=== PATIENT | male | born 1990 | race Caucasian/White ===

== ENCOUNTER 2016-12-19 09:08 | Day surgery (SDC) | payer OTHER ==
--- NOTE | 2016-11-30 13:28 | P.GSHP ---
History of Present Illness H&P Date: 11/30/16 Chief Complaint: Right thigh lipoma Patient seen in the office. He has complaints of a bulge in the right thigh. This is been gradually enlarging. He is interested in removal. He has mild pain at that location. No trauma. Surgical - Exam Physical exam: General: Well-developed, well-nourished HEENT: Normocephalic, sclerae nonicteric Abdomen: Nontender, nondistended Extremities: 4 x 6 cm mass anterior right mid thigh soft fleshy suspect lipoma Neuro: Alert and oriented Assessment and Plan (1) Lipoma of right thigh Narrative/Plan: We'll proceed with surgical excision on 12/19. Risks of bleeding, infection, nerve injury, and recurrence were discussed. He understands and wishes to proceed. Status: Acute
[2016-12-17 14:13] VITALS: BMI 31.4
[~2016-12-19 09:08] MED LIST: HEPARIN SODIUM,PORCINE 5,000 UNIT/ML 1 ML VIAL SQ ONE; HYDROmorphone 1 MG/ML 1 ML SYRINGE IVP PRN; LACTATED RINGERS 1,000 ML IV SCH; LIDOCAINE 1% 20 ML VIAL (10MG/ML) FOR IV START INTRADERMA PRN; Pre Op ABX Message 1 EACH MISC MISCELLANE ONE
--- NOTE | 2016-12-19 09:20 | P.HPADDEND ---
H&P Addendum H&P Addendum Date: 12/19/16 Patient also has complaints of a mass in the left hip region. He says this actually is hurting more in the right thigh lesion. Like this excised as well. On exam this appears represent another lipomatous lesion. This measures about 4 cm in size. Additional risks of infection and recurrence numbness were discussed. He understands and wishes to proceed.
[2016-12-19 09:27] VITALS: TEMP 96.8
[2016-12-19] MEDS ORDERED: ONDANSETRON 4 MG/2 ML VIAL IVP ONE (09:28)
[2016-12-19] MEDS ORDERED: DEXAMETHASONE SOD PHOSPHATE 10 MG/ML 1 ML VIAL IV ONE (09:33)
[2016-12-19] MEDS ORDERED: KETAMINE 10 MG/ML 20 ML VIAL ONE (09:39)
[2016-12-19] MEDS ORDERED: MIDAZOLAM 2 MG/2 ML VIAL ONE (09:39)
[2016-12-19] MEDS ORDERED: fentaNYL (PF) 50 MCG/ML 2 ML AMP ONE (09:39)
[2016-12-19] MEDS ORDERED: PROPOFOL 10 MG/ML 20 ML VIAL IV ONE (09:39)
[2016-12-19] MEDS ORDERED: BUPIVACAINE (PF) 0.25% 30 ML VIAL SQ ONE ×2 (09:59)
[2016-12-19 10:45] VITALS: RESP 16
[2016-12-19] MEDS ORDERED: HYDROcodone/APAP 5-325MG 1 EACH TAB PO PRN (10:47)
[2016-12-19] MEDS ORDERED: NALOXONE 0.4 MG/ML 1 ML VIAL IV PRN (10:47)
--- NOTE | 2016-12-19 10:50 | P.PCN ---
Date of Procedure: 12/19/16 Preoperative Diagnosis: Postoperative Diagnosis: Procedure(s) Performed: PREOPERATIVE DIAGNOSIS: Right thigh and left hip lipoma POSTOPERATIVE DIAGNOSIS: Same PROCEDURE: Excision right thigh and left hip lipoma SURGEON: Marie HENAOL: Minimal ANESTHESIA: Pipo COMPLICATIONS: None OPERATIVE PROCEDURE: Patient was placed in the supine position. The patient's right thigh was prepped and draped in usual sterile fashion. The skin was infiltrated with Marcaine solution. A horizontal incision was made overlying the palpable mass in the mid anterior right thigh. The lipomatous lesion was identified. This was able to be excised with primarily blunt dissection. This measured approximately 4.5 x 3.5 cm. This was sent to pathology. The saphenous tissues were closed using 3-0 Vicryl sutures and the skin using a running 4-0 Monocryl stitch. Next the patient was placed in the right decubitus position. The lesion in the left hip was addressed. A similar incision was created. The mass here measured approximately 4 x 3.5 cm. This was also sent to pathology. This was closed in a similar fashion. Steri- Strips and sterile dressings were applied to both locations. DISPOSITION: Stable to recovery room Implants: Indications for Procedure: Operative Findings: Description of Procedure:
[2016-12-19 11:07] VITALS: BP 116/65; PULSE 72
== END 2016-12-19 11:15 | disposition home or self-care (01) ==
LOC: OR 09:08
PROVIDERS: ATTEND Surgery
DX: D17.23 Benign lipomatous neoplasm of skin and subcutaneous tissue of right leg (principal); D17.1 Benign lipomatous neoplasm of skin and subcutaneous tissue of trunk; F90.9 Attention-deficit hyperactivity disorder, unspecified type; Z79.899 Other long term (current) drug therapy
CPT/HCPCS: 88304; 27337; 27043; J2250; J1644; J1100; J2405; J3010; J2704

== ENCOUNTER 2017-05-24 14:04 | Emergency (ER) | payer OTHER ==
[2017-05-24] MEDS ORDERED: RX INFO: IV CONTRAST WAS GIVEN 1 EACH MISC MISCELLANE PRN (14:44)
--- NOTE | 2017-05-24 14:49 | ED ---
General Adult HPI - General Chief complaint: Back Pain/Injury Stated complaint: Back pain Time Seen by Provider: 05/24/17 14:31 Source: patient, family, RN notes reviewed Mode of arrival: wheelchair Limitations: no limitations - History of Present Illness Initial comments: Patient is a pleasant 26-year-old male presenting to the emergency department with discomfort of his upper back. Patient states this radiates towards the neck and sides and lower back. Patient states this started 2 days ago when he was going to bed. Symptoms have progressively worsened since that time. No history of similar symptoms previously. Patient states it is becoming irritating. Patient states he has been forgetful. Patient needed to leave work because this is becoming aggravating. No weakness. Patient does have tingling to both of his arms. Patient has noticed a lump in his upper back. - Related Data Home Medications Medication Instructions Recorded Confirmed Dextroamphetamine/Amphetamine 20 mg PO DAILY 12/17/16 05/24/17 [Adderall] Previous Rx's Medication Instructions Recorded Acetaminophen-Codeine 300-30mg 1 each PO Q4H PRN #12 tablet 05/24/17 [Tylenol #3] Cephalexin [Keflex] 500 mg PO QID #40 cap 05/24/17 Allergies Allergy/AdvReac Type Severity Reaction Status Date / Time No Known Allergies Allergy Verified 05/24/17 14:40 Review of Systems ROS Statement: Those systems with pertinent positive or pertinent negative responses have been documented in the HPI. ROS Other: All systems not noted in ROS Statement are negative. Constitutional: Denies: fever Eyes: Denies: eye pain ENT: Denies: ear pain Respiratory: Denies: cough Cardiovascular: Denies: chest pain Endocrine: Denies: fatigue Gastrointestinal: Denies: abdominal pain Genitourinary: Denies: dysuria Musculoskeletal: Denies: back pain Skin: Denies: rash Neurological: Reports: headache (Minimal), paresthesias. Denies: weakness Past Medical History Past Medical History: No Reported History History of Any Multi-Drug Resistant Organisms: None Reported Past Surgical History: No Surgical Hx Reported Additional Past Surgical History / Comment(s): dental work, right leg Additional Past Anesthesia/Blood Transfusion Reaction / Comment(s): no surgery Past Psychological History: ADD/ADHD Smoking Status: Never smoker Past Alcohol Use History: None Reported Past Drug Use History: None Reported - Past Family History Mother Family Medical History: No Reported History General Exam Limitations: no limitations General appearance: alert, in no apparent distress Head exam: Present: atraumatic Eye exam: Present: normal appearance, PERRL, EOMI. Absent: nystagmus ENT exam: Present: normal oropharynx Neck exam: Present: normal inspection, full ROM. Absent: tenderness, meningismus Respiratory exam: Present: normal lung sounds bilaterally Cardiovascular Exam: Present: regular rate, normal rhythm GI/Abdominal exam: Present: soft. Absent: tenderness Extremities exam: Present: normal inspection, full ROM. Absent: pedal edema, calf tenderness Back exam: Present: other (In the region from T1 to T3 slightly left of midline and there is approximately 2-3 cm region of mild to moderate swelling. Nontender. Questionable central puncture) Neurological exam: Present: alert, oriented X3, CN II-XII intact. Absent: motor sensory deficit Expanded Patient oriented to: Present: person, place, time Speech: Present: fluid speech Cranial nerves: EOM's Intact: Normal, Facial Sensation: Normal Sensory exam: Upper Extremity Light Touch: Normal, Lower Extremity Light Touch: Normal Motor strength exam: RUE: 5, LUE: 5, RLE: 5, LLE: 5 Eye Response: (4) open spontaneously Motor Response: (6) obeys commands Verbal Response: (5) oriented Psychiatric exam: Present: normal affect, normal mood Skin exam: Present: other (Question puncture in the area of swelling of the upper thoracic region. There is also some mild skin breakdown of the upper neck. It is nontender.) Course Vital Signs 05/24/17 05/24/17 14:15 15:56 Temperature 98.7 F Pulse Rate 76 72 Respiratory 16 18 Rate Blood Pressure 140/74 129/72 O2 Sat by Pulse 98 100 Oximetry EKG Findings - EKG Comments: EKG Findings:: No sinus rhythm 67. NJ 126. QRS 86. QT 360. QTC 380. Normal axis. Normal QRS. No acute ST change. Medical Decision Making - Medical Decision Making Patient reevaluated and resting comfortably in bed. Patient and family updated on results and need for follow-up. Patient is advised to see his doctor Saturday. Patient denies return for increased swelling or sitting symptoms or fevers. Patient will be covered with antibiotics for possible early infection. - Lab Data Result diagrams: 05/24/17 14:55 01/05/18 14:55 Lab Results 05/24/17 05/24/17 05/24/17 Range/Units 14:55 14:55 14:55 WBC 6.1 (3.8-10.6) k/uL RBC 4.72 (4.30-5.90) m/uL Hgb 14.6 (13.0-17.5) gm/dL Hct 43.1 (39.0-53.0) % MCV 91.2 (80.0-100.0) fL MCH 30.8 (25.0-35.0) pg MCHC 33.8 (31.0-37.0) g/dL RDW 12.3 (11.5-15.5) % Plt Count 182 (150-450) k/uL Neutrophils % 68 % Lymphocytes % 23 % Monocytes % 4 % Eosinophils % 3 % Basophils % 1 % Neutrophils # 4.2 (1.3-7.7) k/uL Lymphocytes # 1.4 (1.0-4.8) k/uL Monocytes # 0.2 (0-1.0) k/uL Eosinophils # 0.2 (0-0.7) k/uL Basophils # 0.0 (0-0.2) k/uL PT (9.0-12.0) sec INR (<1.2) APTT (22.0-30.0) sec Sodium 141 (137-145) mmol/L Potassium 4.4 (3.5-5.1) mmol/L Chloride 102 (98-107) mmol/L Carbon Dioxide 30 (22-30) mmol/L Anion Gap 9 mmol/L BUN 19 (9-20) mg/dL Creatinine 1.15 (0.66-1.25) mg/dL Est GFR (MDRD) Af Amer >60 (>60 ml/min/1.73 sqM) Est GFR (MDRD) Non-Af >60 (>60 ml/min/1.73 sqM) Glucose 106 H (74-99) mg/dL Plasma Lactic Acid Will 1.4 (0.7-2.0) mmol/L Calcium 9.5 (8.4-10.2) mg/dL Magnesium 2.0 (1.6-2.3) mg/dL Total Bilirubin 0.2 (0.2-1.3) mg/dL AST 27 (17-59) U/L ALT 32 (21-72) U/L Alkaline Phosphatase 62 (38-126) U/L Total Protein 7.1 (6.3-8.2) g/dL Albumin 4.4 (3.5-5.0) g/dL 05/24/17 Range/Units 14:55 WBC (3.8-10.6) k/uL RBC (4.30-5.90) m/uL Hgb (13.0-17.5) gm/dL Hct (39.0-53.0) % MCV (80.0-100.0) fL MCH (25.0-35.0) pg MCHC (31.0-37.0) g/dL RDW (11.5-15.5) % Plt Count (150-450) k/uL Neutrophils % % Lymphocytes % % Monocytes % % Eosinophils % % Basophils % % Neutrophils # (1.3-7.7) k/uL Lymphocytes # (1.0-4.8) k/uL Monocytes # (0-1.0) k/uL Eosinophils # (0-0.7) k/uL Basophils # (0-0.2) k/uL PT 9.9 (9.0-12.0) sec INR 1.0 (<1.2) APTT 24.8 (22.0-30.0) sec Sodium (137-145) mmol/L Potassium (3.5-5.1) mmol/L Chloride (98-107) mmol/L Carbon Dioxide (22-30) mmol/L Anion Gap mmol/L BUN (9-20) mg/dL Creatinine (0.66-1.25) mg/dL Est GFR (MDRD) Af Amer (>60 ml/min/1.73 sqM) Est GFR (MDRD) Non-Af (>60 ml/min/1.73 sqM) Glucose (74-99) mg/dL Plasma Lactic Acid Will (0.7-2.0) mmol/L Calcium (8.4-10.2) mg/dL Magnesium (1.6-2.3) mg/dL Total Bilirubin (0.2-1.3) mg/dL AST (17-59) U/L ALT (21-72) U/L Alkaline Phosphatase (38-126) U/L Total Protein (6.3-8.2) g/dL Albumin (3.5-5.0) g/dL - Radiology Data Radiology results: image reviewed (Computed tomography scan of the neck show some nonspecific lymph nodes.) Disposition Clinical Impression: Thoracic back pain, Skin lesion of back Disposition: HOME SELF-CARE Condition: Stable Instructions: Back Pain (ED) Additional Instructions: Please follow-up with Dr. Brower Saturday. Return for fevers, increased swelling, weakness, confusion, worsening symptoms or other concerns. Prescriptions: Acetaminophen-Codeine 300-30mg [Tylenol #3] 1 each PO Q4H PRN #12 tablet PRN Reason: Pain Cephalexin [Keflex] 500 mg PO QID #40 cap Referrals: Kael Brower MD [Primary Care Provider] - 1-2 days Time of Disposition: 16:29
[2017-05-24 15:07] LABS: Basophils % (A) 1 %; Eosinophils # (A) 0.2 k/uL (0-0.7); Eosinophils % (A) 3 %; HCT 43.1 % (39.0-53.0); HGB 14.6 gm/dL (13.0-17.5); Lymphocytes # (A) 1.4 k/uL (1.0-4.8); Lymphocytes % (A) 23 %; MCH 30.8 pg (25.0-35.0); MCHC 33.8 g/dL (31.0-37.0); MCV 91.2 fL (80.0-100.0); Mean Platelet Volume 6.9; Monocytes # (A) 0.2 k/uL (0-1.0); Monocytes % (A) 4 %; Neutrophils # (A) 4.2 k/uL (1.3-7.7); Neutrophils % (A) 68 %; Platelet Count 182 k/uL (150-450); RBC 4.72 m/uL (4.30-5.90); RDW 12.3 % (11.5-15.5); WBC 6.1 k/uL (3.8-10.6)
[2017-05-24 15:14] LABS: Partial Thromboplastin Time 24.8 sec (22.0-30.0); Prothrombin Time 9.9 sec (9.0-12.0)
[2017-05-24 15:16] LABS: ALT 32 U/L (21-72); AST 27 U/L (17-59); Albumin 4.4 g/dL (3.5-5.0); Alkaline Phosphatase 62 U/L (38-126); Anion Gap 9 mmol/L; Blood Urea Nitrogen 19 mg/dL (9-20); Calcium 9.5 mg/dL (8.4-10.2); Carbon Dioxide 30 mmol/L (22-30); Chloride 102 mmol/L (98-107); Glucose 106 mg/dL (74-99); Potassium 4.4 mmol/L (3.5-5.1); Sodium 141 mmol/L (137-145); Total Bilirubin 0.2 mg/dL (0.2-1.3); Total Protein 7.1 g/dL (6.3-8.2)
--- NOTE | 2017-05-24 15:37 | CT ---
EXAMINATION TYPE: CT cervical spine w con DATE OF EXAM: 05/24/2017 COMPARISON: NONE HISTORY: Neck swelling, dizziness, and confusion CT DLP: 742.9 mGycm. Automated Exposure Control for Dose Reduction was Utilized. TECHNIQUE: CT scan of the cervical spine is obtained with IV contrast, axial images are obtained, sa gittal and coronal reformatted images are also reviewed. Patient is injected with 100 cc Omnipaque 30 0 for the study. FINDINGS: Cervical spine is visualized in its entirety from C1 through upper thoracic levels, demonst rates satisfactory alignment without evidence of acute fracture or dislocation. Prevertebral soft ti ssue appears within normal limits. The C1-C2 articulation is within normal limits on the coronal josselin ges. Vertebral body heights and disc space heights are maintained. There is prominent anterior spurring C5 -C6 level. No large posterior disc herniations are present. Review of axial images shows no significa nt spinal canal stenosis or neural foraminal narrowing at any cervical level. Thyroid gland is felt w ithin normal limits. Visualized lung apices are clear. No suspicious enhancement is noted. Minimal mu cosal thickening inferior posterior left maxillary sinus is present. There are scattered prominent bi lateral neck lymph nodes, largest right neck and parapharyngeal space measures 12 x 9 mm axial image 49. No definitive greater than 1 cm neck adenopathy is seen. IMPRESSION: There is no acute fracture or dislocation evident in the cervical spine. No significant finding is seen to account for patient's symptoms.
--- NOTE | 2017-05-24 15:39 | XR ---
EXAMINATION TYPE: XR chest 2V DATE OF EXAM: 05/24/2017 COMPARISON: NONE HISTORY: Weakness and neck pain. TECHNIQUE: Frontal and lateral views of the chest are obtained. FINDINGS: There is no focal air space opacity, pleural effusion, or pneumothorax seen. The cardiac silhouette size is within normal limits. The osseous structures are intact. IMPRESSION: No acute cardiopulmonary process.
[2017-05-24] MEDS ORDERED: MORPHINE SULFATE 5 MG/ML SYRINGE IVP PRN (15:45)
[2017-05-24 16:35] VITALS: BP 113/58; PULSE 61; RESP 16; TEMP 97.8
== END 2017-05-24 16:42 | disposition home or self-care (01) ==
LOC: EC 14:04
DX: M54.6 Pain in thoracic spine (principal); L98.9 Disorder of the skin and subcutaneous tissue, unspecified; F90.9 Attention-deficit hyperactivity disorder, unspecified type; Z79.899 Other long term (current) drug therapy
CPT/HCPCS: 99284; 96374; 36415; 93005; 80053; 83605; 83735; 85025; 85610; 85730; 71046; 72126; Q9967; J2274

== ENCOUNTER 2017-08-10 14:56 | Emergency (ER) | payer OTHER ==
[2017-08-10 15:01] VITALS: BP 147/82; PULSE 90; RESP 20; TEMP 98.1
--- NOTE | 2017-08-10 15:10 | ED ---
Medical Clearance HPI - General Chief complaint: Medical Clearance Stated complaint: Needs Breathalyzer Time Seen by Provider: 08/10/17 15:03 Source: patient, RN notes reviewed Mode of arrival: ambulatory Limitations: no limitations - History of Present Illness Initial comments: Patient is a pleasant 27-year-old male presenting to the emergency department requesting alcohol test. Patient does have a breathalyzer and his car. Patient states he used it today however it read void. Patient request documentation that he has not been drinking. Patient denies any alcohol today. Patient has no complaints otherwise. Home medications: Home Medications Medication Instructions Recorded Confirmed Dextroamphetamine/Amphetamine 20 mg PO DAILY 12/17/16 05/24/17 [Adderall] Previous Rx's Medication Instructions Recorded Acetaminophen-Codeine 300-30mg 1 each PO Q4H PRN #12 tablet 05/24/17 [Tylenol #3] Cephalexin [Keflex] 500 mg PO QID #40 cap 05/24/17 Allergies/Adverse reactions: Allergies Allergy/AdvReac Type Severity Reaction Status Date / Time No Known Allergies Allergy Verified 08/10/17 15:00 Review of Systems ROS Statement: Those systems with pertinent positive or pertinent negative responses have been documented in the HPI. ROS Other: All systems not noted in ROS Statement are negative. Constitutional: Denies: fever Eyes: Denies: eye pain ENT: Denies: ear pain Respiratory: Denies: cough Cardiovascular: Denies: chest pain Endocrine: Denies: fatigue Gastrointestinal: Denies: abdominal pain Genitourinary: Denies: dysuria Musculoskeletal: Denies: back pain Skin: Denies: rash Neurological: Denies: weakness Past Medical History Past Medical History: No Reported History History of Any Multi-Drug Resistant Organisms: None Reported Past Surgical History: No Surgical Hx Reported Additional Past Surgical History / Comment(s): dental work, right leg Additional Past Anesthesia/Blood Transfusion Reaction / Comment(s): no surgery Past Psychological History: ADD/ADHD Smoking Status: Never smoker Past Alcohol Use History: None Reported Past Drug Use History: None Reported - Past Family History Mother Family Medical History: No Reported History General Exam Limitations: no limitations General appearance: alert, in no apparent distress Head exam: Present: atraumatic Eye exam: Present: normal appearance, PERRL. Absent: nystagmus ENT exam: Present: normal oropharynx Neck exam: Present: normal inspection Respiratory exam: Present: normal lung sounds bilaterally Cardiovascular Exam: Present: regular rate, normal rhythm GI/Abdominal exam: Present: soft. Absent: tenderness Extremities exam: Present: normal inspection. Absent: pedal edema, calf tenderness Neurological exam: Present: alert Expanded Cerebellar function: Finger to Nose: Normal Psychiatric exam: Present: normal affect, normal mood Skin exam: Present: normal color Course Vital Signs 08/10/17 14:58 Temperature 98.1 F Pulse Rate 90 Respiratory 20 Rate Blood Pressure 147/82 O2 Sat by Pulse 100 Oximetry Disposition Clinical Impression: Suspected condition not found Disposition: HOME SELF-CARE Condition: Stable Instructions: Alcohol Use Disorder (ED) Additional Instructions: Please follow-up with primary care physician in the next couple days for recheck. Return for any concerns. Referrals: Kael Brower MD [Primary Care Provider] - 1-2 days Time of Disposition: 15:10
== END 2017-08-10 15:24 | disposition home or self-care (01) ==
LOC: EC 14:56
DX: Z00.00 Encounter for general adult medical examination without abnormal findings (principal); F90.9 Attention-deficit hyperactivity disorder, unspecified type; Z79.899 Other long term (current) drug therapy
CPT/HCPCS: 82075; 99282

== ENCOUNTER → 2022-06-01 | Outpatient (CLI) | payer OTHER ==
[2022-06-01 23:11] LABS: Basophils # (A) 0.03 X 10*3/uL (0.00-0.10); Basophils % (A) 0.5 %; Eosinophils # (A) 0.34 X 10*3/uL (0.04-0.35); Eosinophils % (A) 5.5 %; HCT 43.5 % (39.6-50.0); HGB 14.1 g/dL (13.0-17.0); Immature Grans, Automated 0.5 %; Lymphocytes # (A) 1.92 X 10*3/uL (0.90-5.00); Lymphocytes % (A) 31.1 %; MCHC 32.4 g/dL (32.0-37.0); MCV 95.6 fL (80.0-97.0); Mean Platelet Volume 10.2 fL (9.5-12.2); Monocytes # (A) 0.46 X 10*3/uL (0.20-1.00); Monocytes % (A) 7.5 %; NRBC Per 100 WBC 0 /100 WBCS (0.0-0.0); Neutrophils # (A) 3.39 X 10*3/uL (1.80-7.70); Neutrophils % (A) 54.9 %; Platelet Count 230 X 10*3/uL (140-440); RBC 4.55 X 10*6/uL (4.40-5.60); RDW 12.9 % (11.5-14.5); WBC 6.17 X 10*3/uL (4.50-10.00)
[2022-06-01 23:48] LABS: African American GFR (CKD) 107.1 (60.0-200.0); Anion Gap 14.7 mmol/L (10.00-18.00); BUN/Creat Ratio 9.72 Ratio (12.00-20.00); Blood Urea Nitrogen 10.3 mg/dL (9.0-27.0); Carbon Dioxide 24.3 mmol/L (20.0-27.5); Non-African American GFR(CKD) 92.4 (60.0-200.0); Potassium 4.8 mmol/L (3.5-5.5)
== END | disposition home or self-care (01) ==
LOC: LABWHC1 15:48
PROVIDERS: ATTEND Family Medicine
DX: K92.1 Melena (principal)
CPT/HCPCS: 36415; 80048; 85025